=== PATIENT | male | born 1930 | race Caucasian/White ===

== ENCOUNTER 2019-09-01 09:40 | Emergency (ER) | payer MEDICARE, BC ==
--- NOTE | 2019-09-01 10:00 | ED ---
General Adult HPI - General Chief complaint: Neuro Symptoms/Deficit Stated complaint: Stroke Time Seen by Provider: 09/01/19 09:42 Source: patient, EMS, RN notes reviewed Mode of arrival: EMS Limitations: no limitations - History of Present Illness Initial comments: Patient is a pleasant 89-year-old male presenting to the emergency department with son with complaints of concerns for stroke. EMS provides history as well as son. Patient is a poor historian. Last known well was 9 PM last night. Patient was found on the ground this morning. Patient denies any trauma or injury. No complaints of pain. EMS has noticed left-sided facial and arm wea kness. Son states the patient is somewhat more confused than normal. No history of similar symptoms previously. Symptoms have been steady. EMS did report low heart rate and did give 0.5 of atropine with improvement. - Related Data Allergies Allergy/AdvReac Type Severity Reaction Status Date / Time No Known Allergies Allergy Verified 09/01/19 09:57 Review of Systems ROS Statement: Those systems with pertinent positive or pertinent negative responses have been documented in the HPI. ROS Other: All systems not noted in ROS Statement are negative. Constitutional: Denies: fever Eyes: Denies: eye pain ENT: Denies: ear pain Respiratory: Denies: cough Cardiovascular: Denies: chest pain Endocrine: Denies: fatigue Gastrointestinal: Denies: abdominal pain Genitourinary: Denies: dysuria Musculoskeletal: Denies: back pain Skin: Denies: rash Neurological: Denies: weakness Past Medical History Past Medical History: No Reported History History of Any Multi-Drug Resistant Organisms: None Reported Past Surgical History: Orthopedic Surgery Past Psychological History: No Psychological Hx Reported Smoking Status: Never smoker General Exam Limitations: no limitations General appearance: alert, in no apparent distress Head exam: Present: atraumatic, normocephalic Eye exam: Present: normal appearance, PERRL, EOMI. Absent: nystagmus ENT exam: Present: normal oropharynx Neck exam: Present: normal inspection Respiratory exam: Present: normal lung sounds bilaterally Cardiovascular Exam: Present: regular rate, normal rhythm GI/Abdominal exam: Present: soft. Absent: tenderness Extremities exam: Present: normal inspection Neurological exam: Present: alert, altered Expanded Neurological exam: Present: protecting the airway Patient oriented to: Present: person. Absent: place, time Cranial nerves: EOM's Intact: Normal, Facial Sensation: Normal Motor strength exam: RUE: 5, LUE: 2/1, RLE: 5, LLE: 4 Eye Response: (4) open spontaneously Motor Response: (6) obeys commands Verbal Response: (4) confused conversation Psychiatric exam: Present: normal affect, normal mood Skin exam: Present: normal color Course Vital Signs 09/01/19 09/01/19 09/01/19 09:43 09:50 10:05 Temperature 97.2 F L Pulse Rate 101 H 101 H 89 Respiratory 17 18 18 Rate Blood Pressure 125/94 143/93 O2 Sat by Pulse 93 L 93 L 94 L Oximetry 09/01/19 09/01/19 09/01/19 10:20 10:35 10:50 Temperature Pulse Rate 92 98 91 Respiratory 18 18 17 Rate Blood Pressure 158/95 153/89 153/89 O2 Sat by Pulse 93 L 94 L 92 L Oximetry - Reevaluation(s) Reevaluation #1: 09/01/19 10:59 Case discussed twice with Dr. Osborn who agrees patient is not a TPA candidate. He will evaluate patient and [facility] and does recommend transfer there. Patient reevaluated. [facility] has gone from 9 to 2. Patient and family updated. Dr. Osborn did request 300 Plavix and aspirin and Lipitor. Patient is not a candidate for TPA secondary to onset of symptoms greater than 4.5 hours 09/01/19 11:01 Case was discussed in detail with Dr. Gentile, who will accept transfer. EKG Findings - EKG Comments: EKG Findings:: Sinus rhythm 96. For screening AV block TX 216. QRS 86. QT 366. QTc 462. Normal axis. Inferior Q waves. No acute ST change. Medical Decision Making - Lab Data Result diagrams: 09/01/19 09:55 09/01/19 09:55 Lab Results 09/01/19 09/01/19 09/01/19 Range/Units 09:55 09:55 09:55 WBC 9.4 (3.8-10.6) k/uL RBC 4.43 (4.30-5.90) m/uL Hgb 14.2 (13.0-17.5) gm/dL Hct 42.7 (39.0-53.0) % MCV 96.5 (80.0-100.0) fL MCH 32.1 (25.0-35.0) pg MCHC 33.3 (31.0-37.0) g/dL RDW 13.0 (11.5-15.5) % Plt Count 301 (150-450) k/uL Neutrophils % 69 % Lymphocytes % 15 % Monocytes % 8 % Eosinophils % 5 % Basophils % 1 % Neutrophils # 6.5 (1.3-7.7) k/uL Lymphocytes # 1.4 (1.0-4.8) k/uL Monocytes # 0.7 (0-1.0) k/uL Eosinophils # 0.5 (0-0.7) k/uL Basophils # 0.1 (0-0.2) k/uL PT 10.5 (9.0-12.0) sec INR 1.0 (<1.2) APTT 23.3 (22.0-30.0) sec Sodium 135 L (137-145) mmol/L Potassium 4.7 (3.5-5.1) mmol/L Chloride 102 (98-107) mmol/L Carbon Dioxide 25 (22-30) mmol/L Anion Gap 8 mmol/L BUN 22 H (9-20) mg/dL Creatinine 1.02 (0.66-1.25) mg/dL Est GFR (CKD-EPI)AfAm 75 (>60 ml/min/1.73 sqM) Est GFR (CKD-EPI)NonAf 65 (>60 ml/min/1.73 sqM) Glucose 85 (74-99) mg/dL POC Glucose (mg/dL) (75-99) mg/dL POC Glu Director Information ID Calcium 9.3 (8.4-10.2) mg/dL Total Bilirubin 1.4 H (0.2-1.3) mg/dL AST 36 (17-59) U/L ALT 25 (21-72) U/L Alkaline Phosphatase 47 (38-126) U/L Troponin I (0.000-0.034) ng/mL Total Protein 7.0 (6.3-8.2) g/dL Albumin 3.7 (3.5-5.0) g/dL 09/01/19 09/01/19 Range/Units 09:55 10:37 WBC (3.8-10.6) k/uL RBC (4.30-5.90) m/uL Hgb (13.0-17.5) gm/dL Hct (39.0-53.0) % MCV (80.0-100.0) fL MCH (25.0-35.0) pg MCHC (31.0-37.0) g/dL RDW (11.5-15.5) % Plt Count (150-450) k/uL Neutrophils % % Lymphocytes % % Monocytes % % Eosinophils % % Basophils % % Neutrophils # (1.3-7.7) k/uL Lymphocytes # (1.0-4.8) k/uL Monocytes # (0-1.0) k/uL Eosinophils # (0-0.7) k/uL Basophils # (0-0.2) k/uL PT (9.0-12.0) sec INR (<1.2) APTT (22.0-30.0) sec Sodium (137-145) mmol/L Potassium (3.5-5.1) mmol/L Chloride (98-107) mmol/L Carbon Dioxide (22-30) mmol/L Anion Gap mmol/L BUN (9-20) mg/dL Creatinine (0.66-1.25) mg/dL Est GFR (CKD-EPI)AfAm (>60 ml/min/1.73 sqM) Est GFR (CKD-EPI)NonAf (>60 ml/min/1.73 sqM) Glucose (74-99) mg/dL POC Glucose (mg/dL) 109 H (75-99) mg/dL POC Glu Director Information ID Malka Jimenez Calcium (8.4-10.2) mg/dL Total Bilirubin (0.2-1.3) mg/dL AST (17-59) U/L ALT (21-72) U/L Alkaline Phosphatase (38-126) U/L Troponin I 0.016 (0.000-0.034) ng/mL Total Protein (6.3-8.2) g/dL Albumin (3.5-5.0) g/dL - Radiology Data Radiology results: report reviewed (Computed tomography scan of the brain shows moderate atrophy. Old infarct. Vascular calcifications. No acute intercranial abnormality. CT angios shows nonvisualization P1 right posterior cerebral artery, cannot exclude occlusion. Moderate atherosclerotic calcifications. Diminutive A1 segment anterior cerebral artery. Mild to moderate acidosis calcifications carotid bifurcations lymph nodes.) Critical Care Time Critical Care Time: Yes Total Critical Care Time: 32 Disposition Clinical Impression: Cerebrovascular accident (CVA) Disposition: OTHER INSTITUTION NOT DEFINED Condition: Serious Is patient prescribed a controlled substance at d/c from ED?: No Referrals: Cristobal Martinez MD [Primary Care Provider] - 1-2 days Time of Disposition: 11:01 - Out of Hospital Transfer - Req. Specs Out of Hospital Transfer - Requested Specifics: Other Emergency Center
[2019-09-01 10:17] LABS: Partial Thromboplastin Time 23.3 sec (22.0-30.0); Prothrombin Time 10.5 sec (9.0-12.0)
[2019-09-01 10:22] LABS: Albumin 3.7 g/dL (3.5-5.0); Calcium 9.3 mg/dL (8.4-10.2); Total Bilirubin 1.4 mg/dL (0.2-1.3)
--- NOTE | 2019-09-01 10:22 | CT ---
EXAMINATION TYPE: CT brain wo con for TPA DATE OF EXAM: 09/01/2019 COMPARISON: None HISTORY: 89-year-old male Left sided weakness with mental status changes. TECHNIQUE: Examination was done in axial plane without intravenous contrast. Coronal and sagittal r econstructions performed. CT DLP: 1184.8 mGycm Automated exposure control for dose reduction was used. FINDINGS: There is no evidence of acute intracranial hemorrhage, acute ischemic changes, mass, mass-effect, or extra-axial fluid collection. There is no effacement of cerebral sulci or basal subarachnoid cister ns. There is no hydrocephalus. There is no midline shift. Canas-white matter distinction is preserv ed. Moderate atelectatic calcifications in the bilateral carotid siphons, possibly more moderate to sever e on the right. Moderate generalized supratentorial volume loss. Mild hydrocephalus likely on an ex vacuo basis from central cerebral atrophy. Old white matter infarct right subinsular region and probably along the anterior limb internal capsul e with encephalomalacia. Moderate patchy white matter hypodensities in the periventricular regions. IMPRESSION: 1. Moderate generalized atrophy. Mild ex vacuo ventriculomegaly. 2. Old white matter infarct in the right subinsular region and moderate patchy changes of chronic sma ll vessel ischemic disease. 3. Moderate vascular calcifications in the carotid siphons, possibly more moderate to severe on the r ight. 4. No acute intracranial abnormality seen. Follow up CT or MRI if symptoms persist.
[2019-09-01 10:26] LABS: Basophils # (A) 0.1 k/uL (0-0.2); Basophils % (A) 1 %; Eosinophils # (A) 0.5 k/uL (0-0.7); Eosinophils % (A) 5 %; HCT 42.7 % (39.0-53.0); HGB 14.2 gm/dL (13.0-17.5); Lymphocytes # (A) 1.4 k/uL (1.0-4.8); Lymphocytes % (A) 15 %; MCH 32.1 pg (25.0-35.0); MCHC 33.3 g/dL (31.0-37.0); MCV 96.5 fL (80.0-100.0); Mean Platelet Volume 6.1; Monocytes # (A) 0.7 k/uL (0-1.0); Monocytes % (A) 8 %; Neutrophils # (A) 6.5 k/uL (1.3-7.7); Neutrophils % (A) 69 %; Platelet Count 301 k/uL (150-450); RBC 4.43 m/uL (4.30-5.90); WBC 9.4 k/uL (3.8-10.6)
[2019-09-01 10:27] LABS: Potassium 4.7 mmol/L (3.5-5.1)
--- NOTE | 2019-09-01 10:33 | CT ---
EXAMINATION TYPE: CT angio head neck DATE OF EXAM: 09/01/2019 COMPARISON: CT obtained same day HISTORY: 89-year-old male with acute neurologic deficit, suspected stroke, left-sided weakness TECHNIQUE: Contiguous axial scanning of the head and neck performed with IV Contrast, patient injecte d with 65 mL of Isovue 370. Coronal/sagittal MIP reconstructions performed. 3-D reconstructions gener ated on a dedicated independent workstation. CT DLP: 1184 mGycm Automated exposure control for dose reduction was used. FINDINGS: NECK: Borderline and mildly enlarged thoracic lymph nodes measuring up to 1.4 cm right hilum, 8 mm precarin al, 1.3 cm left tracheobronchial angle. Borderline to mildly enlarged caliber right and left main pulmonary arteries measuring up to 2.8 cm s uggest underlying pulmonary arterial hypertension. Mild atherosclerotic arch calcifications with bovine configuration to the aortic arch. Arch vessel or igins are patent. The bilateral vertebral arteries are codominant and patent throughout their course. The right common carotid artery is patent. Mild to moderate prostatic calcification at the right thompson tid bifurcation with mild, less than 50% narrowing in the carotid bulb. Left common carotid artery is patent. Mild atelectatic calcification within the left carotid bulb with mild, less than 25% narrowing of the proximal ICA. Head: Mild atherosclerotic irregularity along the V4 segment right vertebral artery. Otherwise, the vertebr al and basilar arteries are patent. Nonvisualization of the right posterior cerebral artery. Moderate atherosclerotic calcifications throughout the carotid siphons. On these angiographic images, there may be severe atherosclerotic narrowing along the clinoid segment left ICA. Relatively small c aliber to the bilateral A1 segment anterior cerebral arteries. Otherwise, the anterior circulation ap pears patent No aneurysmal change is seen. IMPRESSION: HEAD: 1. Nonvisualization of the P1 segment right posterior cerebral artery. Occlusion at this level not ex cluded. 2. Moderate atherosclerotic calcifications throughout the bilateral carotid siphons with suggestion o f severe atherosclerotic narrowing along the clinoid segment left ICA. 3. 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 NECK: 1. Mild to moderate atherosclerotic calcifications in the carotid bifurcations with mild, less than 5 0% proximal ICA stenosis on both sides. 2. Codominant and patent vertebral arteries. 3. Borderline and mildly enlarged mediastinal and right hilar lymph nodes measuring up to 1.4 cm. Fin dings may be reactive/post inflammatory. Recommended nonemergent follow-up CT chest to survey the ent ghada thorax. Underlying pulmonary arterial hypertension.
[2019-09-01 10:48] LABS: Glucose,Whole Blood 109 mg/dL (75-99)
[2019-09-01] MEDS ORDERED: CLOPIDOGREL 75 MG TAB PO STA (11:01)
[2019-09-01] MEDS ORDERED: ASPIRIN 81 MG PO STA (11:01)
[2019-09-01] MEDS ORDERED: ATORVASTATIN 80 MG TAB PO STA (11:02)
--- NOTE | 2019-09-01 11:17 | XR ---
EXAMINATION TYPE: XR chest 1V portable DATE OF EXAM: 09/01/2019 Comparison: None Clinical History: 89-year-old male confusion, altered mental status Findings: Low lung volumes. Cardiovascular markings. Heart upper limits of normal in size. Diffuse interstitial prominence likely due to low volumes and chronic change. No debbi consolidation or sizable effusion. Impression: Limited, hypoventilatory exam. No definite infiltrate.
[2019-09-01 11:48] VITALS: BP 134/91; PULSE 90; RESP 20; TEMP 97.3
== END 2019-09-01 12:10 | disposition other institution (70) ==
LOC: EC 09:40
DX: I63.9 Cerebral infarction, unspecified (principal); R29.709 NIHSS score 9
CPT/HCPCS: 99291; 51701; 36415; 93005; 80053; 84484; 85025; 85610; 85730; 71045; 70496; 70450; 70498; Q9967